=== PATIENT | male | born 1940 | race Caucasian/White ===

== ENCOUNTER 2019-06-12 10:39 | Emergency (ER) | payer MEDICARE, MEDICAID ==
[~2019-06-12] VITALS: Ht 162.6 cm; Wt 80.7 kg
--- NOTE | 2019-06-12 10:41 | NUR ---
Placed in room 02 . Placed on playground monitor, blood pressure machine and pulse oximeter. To gown for exam. Side rails up.
[2019-06-12 10:49] VITALS: BP_SYST 130
--- NOTE | 2019-06-12 10:50 | NUR ---
ER Dr. Lozada at bedside examining patient.
[2019-06-12] MEDS ORDERED: NS 500 ML IV ONE (11:00)
--- NOTE | 2019-06-12 11:25 | NUR ---
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 Patient A&Ox2, skin pin and warm, afebrile, ambulatory, denies pain, denies N/V/D. Patient confused was found on street urinating, confused, psyche hx.
[2019-06-12 11:30] LABS: BASOPHILS % (AUTO) 0.3 % (0.0-2.0); EOSINOPHILS % (AUTO) 0.1 % (0.0-4.0); HEMATOCRIT 42.7 % (36-54); HEMOGLOBIN 14.5 g/dL (14.0-18.0); LYMPHOCYTES # (AUTO) 0.9 K/uL (1.0-5.5); LYMPHOCYTES % (AUTO) 8.2 % (20.5-51.5); MEAN CORPUSCULAR HEMOGLOBIN 29 pg (27-31); MEAN CORPUSCULAR HGB CONC 34 % (32-36); MEAN CORPUSCULAR VOLUME 86 fL (79.0-98.0); MONOCYTES # (AUTO) 0.7 K/uL (0.0-1.0); MONOCYTES % (AUTO) 6.3 % (1.7-9.3); NEUTROPHILS % (AUTO) 85.1 % (40.0-70.0); PLATELET COUNT (AUTO) 204 K/uL (130-430); RED BLOOD CELL COUNT(AUTO) 4.98 MIL/uL (4.2-6.2); RED CELL DISTRIBUTION WIDTH 13.8 % (9.0-15.0); WHITE BLOOD COUNT (AUTO) 10.6 K/uL (4.8-10.8)
[2019-06-12 11:41] LABS: ANION GAP 12 (5-15); CALCIUM 9.3 mg/dL (8.4-11.0); CHLORIDE 107 mmol/L (98-107); GLUCOSE 117 mg/dL (70-99); POTASSIUM 3.8 mmol/L (3.5-5.1); SODIUM SERUM 144 mmol/L (136-145); UREA NITROGEN, BLOOD 29 mg/dL (8-21)
[2019-06-12 11:44] LABS: INR 1.1 (0.80-1.20); PROTHROMBIN TIME 10.8 SECS (9.5-12.5)
[2019-06-12 11:47] LABS: ALANINE AMINOTRANSFERASE 51 U/L (12-78); ALBUMIN 4.4 g/dL (3.4-4.8); ASPARTATE AMINOTRANSFERASE 59 U/L (10-37); TOTAL BILIRUBIN 1.9 mg/dL (0.0-1.0)
--- NOTE | 2019-06-12 12:42 | NUR ---
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 Patient A&Ox2, skin pin and warm, afebrile, ambulatory, denies pain, denies N/V/D. Patient confused was found on street urinating, confused, psyche hx.
[2019-06-12 13:43] LABS: BILIRUBIN,URINE 2+ (NEGATIVE); BLOOD, URINE 3+ (NEGATIVE); CLARITY/URINE CLOUDY (CLEAR); COLOR,URINE BROWN (YELLOW); GLUCOSE,URINE NEGATIVE (NEGATIVE); KETONES,URINE 3+ (NEGATIVE); LEUKOCYTE ESTERASE ,URINE NEGATIVE (NEGATIVE); NITRITE, URINE NEGATIVE (NEGATIVE); PH,URINE 6.5 (5.0-8.0); PROTEIN URINE 3+ (NEGATIVE)
--- NOTE | 2019-06-12 13:46 | NUR ---
Report to Desiree LILLY
[2019-06-12 13:51] LABS: RBC,URINE >100 /HPF (0-3)
[2019-06-12 13:52] LABS: BACTERIA,URINE MODERATE /HPF (None Seen); WBC,URINE 0-3 /HPF (0-3); YEAST,URINE Few /HPF (None Seen)
--- NOTE | 2019-06-12 14:30 | NUR ---
Report from Desiree LILLY
[2019-06-12 15:13] LABS: ALCOHOL, BLOOD < 3 mg/dL (<10)
[2019-06-12 15:14] LABS: ACETAMINOPHEN < 1 ug/mL (1-30)
[2019-06-12 15:28] LABS: BARBITURATE, URINE NEGATIVE (NEG <=200); BENZODIAZEPINE, URINE NEGATIVE (NEG <=150); CANNABINOID, URINE NEGATIVE (NEG <=50); COCAINE, URINE NEGATIVE (NEG <=150); METHAMPHETAMINES SCREEN,URINE NEGATIVE (NEG <=500); OPIATE, URINE NEGATIVE (NEG <=100); PHENCYCLIDINE SCREEN,URINE NEGATIVE (NEG <=25); UR TRICYCLIC ANTIDEPRESSANTS NEGATIVE (NEG <=300); URINE AMPHETAMINE NEGATIVE (NEG <=500); URINE METHADONE NEGATIVE (NEG <=200); URINE OXYCODONE SCREEN NEGATIVE (NEG <=100); URINE PROPOXYPHENE SCREEN NEGATIVE (NEG <=300)
--- NOTE | 2019-06-12 15:54 | NUR ---
DR. CAI, JOLIET EPRP DOC, CALLED BACK REGARDING PT TRANSFER/ ADMISSION.
--- NOTE | 2019-06-12 15:55 | NUR ---
Patient to Radiology with staff via [facility].
--- NOTE | 2019-06-12 16:10 | NUR ---
Patient to ER bed [address] with staff. Placed on monitor technician & pulse-ox.
--- NOTE | 2019-06-12 16:41 | NUR ---
TRANSFER INFO [facility] ACCEPTING: DR. FULLER REPORT: [phone] S ETA 1718 SPOKE TO [place]
[2019-06-12 17:24] VITALS: BP_SYST 114
--- NOTE | 2019-06-12 17:26 | NUR ---
Patient to be transferred to [facility]. Is being transferred due to higher level of care. Receiving facility has accepting physician and available space. ER physician has signed transfer form. Patient or responsible alliance party has agreed to transfer and signed form. Patient belongings inventoried and will be sent with patient. Copy of nursing notes, lab reports, EKG, Physicians Orders and X-rays to be sent with patient. Report called to Jaylan at receiving facility. Receiving physician is Dr Meyers. [facility] ambulance service has been called for transfer. ETA is 90 min .
== END 2019-06-12 17:26 | disposition short-term general hospital (02) ==
LOC: SED 10:39
DX: F78 Other intellectual disabilities (principal); R31.9 Hematuria, unspecified; R41.82 Altered mental status, unspecified
CPT/HCPCS: 36415; 70450; 71045; 74176; 80053; 80307; 81000; 83605; 84484; 85025; 85610; 85730; 87040; 87086; 93005; 96360; 99285; G0480; G0481; G0482; J7040